=== PATIENT | female | born 1990 | race Caucasian/White ===

== ENCOUNTER → 2018-10-05 | Outpatient (CLI) | payer BC ==
--- NOTE | 2018-10-05 14:04 | Diagnostic Imaging Report ---
EXAM: US ABDOMEN COMPLETE INDICATION: Right upper quadrant abdominal pain. COMPARISON: None TECHNIQUE: Transverse and longitudinal munoz scale and color doppler sonographic images of the abdomen were obtained. FINDINGS: LIVER Measures 15.7 cm in the right midclavicular line. Normal echogenicity of the liver with normal contour, no masses. SPLEEN Measures 12.5 cm in maximum diameter. Normal echogenicity, no masses. GALLBLADDER Multiple gallstones. No gallbladder wall thickening, distension, or pericholecystic fluid. Negative reported sonographic Lambert's sign. BILE DUCTS No intra nor extra-hepatic biliary dilation. Common bile duct measures 0.2 cm PANCREAS: Visualized portions are normal. RIGHT KIDNEY: 11.6 cm Echogenicity: Normal Collecting System: No hydronephrosis Stones: None Cyst/Mass: None LEFT KIDNEY: 10.3 cm Echogenicity: Normal Collecting System: No hydronephrosis Stones: None Cyst/Mass: None VESSELS: Aorta: Visualized portions are within normal size limits Inferior Vena Cava: Visualized portions are normal Main Portal Vein: 0.9 cm, normal size with hepatopetal flow. FREE FLUID: None IMPRESSION: Cholelithiasis without sonographic evidence of cholecystitis. Borderline mild hepatomegaly. Signed by: Dr. Avila Rios MD on 10/05/2018 2:01 PM
--- NOTE | 2018-10-05 17:12 | Diagnostic Imaging Report ---
Hepatobiliary Scan with Gallbladder Ejection Fraction Clinical information: Right upper quadrant abdominal pain Technique: Following intravenous administration of approximately 6 millicuries of [id number] mebrofenin, dynamic images of the abdomen in the anterior projection were obtained through 60 minutes. Additional static images were obtained at 90 minutes. Sincalide (CCK analog) 1.4 micrograms was administered intravenously over 30 minutes with additional imaging for determination of gallbladder ejection fraction. Discussion: Perfusion of the liver is normal. Extraction of tracer by the liver parenchyma is normal. Tracer appears promptly within the biliary tract. Tracer is seen in the small bowel by 10 minutes post injection of tracer. The gallbladder does not fill until 90 minutes.. The gallbladder ejection fraction with sincalide is 17% (normal greater than 40%). Impression: 1. Filling of the gallbladder excludes acute cystic duct obstruction/acute cholecystitis. 2. The decreased gallbladder ejection fraction of 17% supports the clinical diagnosis of chronic cholecystitis/gallbladder dyskinesia. Signed by: Dr. Edna Lino M.D. on 10/05/2018 5:08 PM
== END ==
LOC: US 12:52
PROVIDERS: ATTEND Internal Medicine Gastroenterology
DX: R10.11 Right upper quadrant pain (principal)
CPT/HCPCS: 76700; 78227; 81025; A9537